=== PATIENT | female | born 1955 | race African-American/Black ===

== ENCOUNTER 2016-09-03 18:01 | Emergency (ER) | payer OTHER ==
[~2016-09-03] VITALS: Ht 162.6 cm; Wt 89.8 kg
[~2016-09-03 18:01] MED LIST: CARDURA4 MG; CARVEDILOL12.5 MG; CLEOCIN HCL150 MG PO; DOXYCYCLINE 10100 MG PO; FLEXERIL PO; GABAPENTIN100 MG; LISINOPRIL10 MG; NAPROSYN500 MG PO; NEXIUM40 MG PO; NORCO 5-325 TA1 EACH PO; NORFLEX100 MG PO; OXYCONTIN20 M1 PO; PENICILLIN V P500 MG PO; PERCOCET 5-3251 EACH PO; PREDNISONE 10 M10 MG PO; PREDNISONE 20 M20 MG PO; TRAMADOL 50 MG50 MG PO; ULTRAM 50MG TAB50 MG PO; ZANAFLEX4 MG PO
[2016-09-03] MEDS ORDERED: OXYCONTIN10 M1 (18:04)
[2016-09-03] MEDS ORDERED: NORFLEX100 MG PO (18:11)
[2016-09-03] MEDS ORDERED: PREDNISONE 20 M20 MG PO (18:11)
[2016-09-03 18:41] VITALS: BP 103/67
== END 2016-09-03 18:42 | disposition home or self-care (01) ==
LOC: ER 18:01
DX: M54.31 Sciatica, right side (principal); I10 Essential (primary) hypertension; G89.29 Other chronic pain; Z88.5 Allergy status to narcotic agent; Z88.0 Allergy status to penicillin

== ENCOUNTER 2017-07-11 20:04 | Emergency (ER) | payer OTHER ==
[~2017-07-11] VITALS: Ht 162.6 cm; Wt 88.5 kg
[~2017-07-11 20:04] MED LIST changes: +OXYCONTIN10 M1
== END 2017-07-11 21:20 | disposition home or self-care (01) ==
LOC: ER 20:04
DX: J11.1 Influenza due to unidentified influenza virus with other respiratory manifestations (principal); H61.22 Impacted cerumen, left ear; I10 Essential (primary) hypertension; Z88.0 Allergy status to penicillin; Z88.5 Allergy status to narcotic agent

== ENCOUNTER 2019-04-30 12:31 | Emergency (ER) | payer OTHER ==
[~2019-04-30] VITALS: Ht 162.6 cm; Wt 88.0 kg
[~2019-04-30 12:31] MED LIST changes: -CARVEDILOL12.5 MG; +CARVEDILOL12.5 MG PO; -GABAPENTIN100 MG; +GABAPENTIN100 MG PO; -LISINOPRIL10 MG; +LISINOPRIL10 MG PO; -OXYCONTIN10 M1; +OXYCONTIN10 M1 PO
[2019-04-30 13:43] LABS: URINE BILIRUBIN NEGATIVE (Negative); URINE BLOOD NEGATIVE (Negative); URINE CLARITY CLEAR; URINE COLOR YELLOW; URINE GLUCOSE-RANDOM* NEGATIVE (Negative); URINE KETONES NEGATIVE (Negative); URINE LEUKOCYTES-REFLEX NEGATIVE (Negative); URINE NITRITE-REFLEX NEGATIVE (Negative); URINE PROTEIN (DIPSTICK) NEGATIVE (Negative); URINE SPECIFIC GRAVITY 1.015 (1.005-1.035)
[2019-04-30 13:43] LABS: ABSOLUTE NEUTROPHILS 5.3 thou/uL (1.4-8.2); EOSINOPHILS 2.5 % (0.0-3.0); HEMATOCRIT 37.2 % (37.0-47.0); HEMOGLOBIN 12.2 gm/dL (12.0-15.0); LYMPHOCYTES 27.3 % (24.0-44.0); MCH 26.8 pg (26.0-34.0); MCHC 32.9 g/dL (28.0-37.0); MCV 81.6 fL (80.0-100.0); MONOCYTES 5.5 % (1.0-8.0); PLATELET COUNT 231 thou/uL (150-400); POLYS 63.7 % (36.0-66.0); RBC 4.56 mil/uL (4.20-5.00); RDW 14.7 % (10.5-14.5); WBC 8.3 thou/uL (4.0-11.0)
[2019-04-30 14:06] LABS: ALBUMIN 2.9 g/dL (3.4-5.0); CALCIUM 8.6 mg/dL (8.5-10.1); CREATININE 0.7 mg/dL (0.6-1.0); TOTAL BILIRUBIN 0.4 mg/dL (<0.1-1.0)
[2019-04-30 14:09] LABS: POTASSIUM 2.8 mmol/L (3.5-5.1)
[2019-04-30] MEDS ORDERED: POTASSIUM20 PO (16:18)
[2019-04-30] MEDS ORDERED: MOBIC15 MG PO (16:18)
[2019-04-30 17:00] VITALS: BP 171/89
== END 2019-04-30 17:00 | disposition home or self-care (01) ==
LOC: ER 12:31
PROVIDERS: Physician Assistant
DX: E87.6 Hypokalemia (principal); E83.42 Hypomagnesemia; M54.32 Sciatica, left side; R10.30 Lower abdominal pain, unspecified; I10 Essential (primary) hypertension; G89.29 Other chronic pain; Z88.0 Allergy status to penicillin; Z88.5 Allergy status to narcotic agent; Z79.899 Other long term (current) drug therapy